=== PATIENT | female | born 2000 | race Caucasian/White ===

== ENCOUNTER 2019-11-29 17:00 | Emergency (ER) | payer OTHER ==
[~2019-11-29] VITALS: Ht 167.4 cm; Wt 113.4 kg
[2019-11-29] MEDS ORDERED: fentaNYL INJECTION 100 MCG/2 ML AMP ONE (17:05)
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
[2019-11-29 17:27] LABS: HEMOGLOBIN 13.4 G/DL (11.5-16.0); MEAN PLATELET VOLUME 9.2 FL (7.4-10.4); RED CELL DISTRIBUTION WIDTH 14.2 % (10.0-14.5); WHITE BLOOD COUNT 8.9 10^3/uL (4.3-11.0)
[2019-11-29] MEDS ORDERED: IOHEXOL 350 MG/ML 100 ML (OMNIPAQUE 350) VIAL IV ONE (17:30)
[2019-11-29] MEDS ORDERED: HOLD METFORMIN - RECEIVED CONTRAST 20 ML VIAL IV SCH (17:30)
[2019-11-29] MEDS ORDERED: NS 100 ML (IVPB) BAG IV ONE (17:30)
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
[2019-11-29 17:49] LABS: ALANINE AMINOTRANSFERASE 30 U/L (0-55); ALBUMIN 4.1 GM/DL (3.2-4.5); ALKALINE PHOSPHATASE 58 U/L (40-136); BILIRUBIN,DIRECT 0.2 MG/DL (0.0-0.3); BILIRUBIN,INDIRECT 0.1 MG/DL; BILIRUBIN,TOTAL 0.3 MG/DL (0.1-1.0); BUN/CREATININE RATIO 10; CALCIUM 9.6 MG/DL (8.5-10.1); CARBON DIOXIDE 18 MMOL/L (21-32); CHLORIDE 115 MMOL/L (98-107); CREATININE SERUM 0.91 MG/DL (0.60-1.30); GFR ESTIMATED > 60; GLUCOSE 125 MG/DL (70-105); POTASSIUM 3.5 MMOL/L (3.6-5.0); SODIUM 142 MMOL/L (135-145); TOTAL PROTEIN 7.2 GM/DL (6.4-8.2)
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
--- NOTE | 2019-11-29 18:05 | NUR ---
c collar removed by physician
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
[2019-11-29] MEDS ORDERED: NS IV 1000 ML 1,000 ML ONE (18:06)
[2019-11-29] MEDS ORDERED: TETANUS,DIPTH,PERTUSS P/F (BOOSTRIX) 0.5 ML VIAL IM ONE (18:15)
[2019-11-29] MEDS ORDERED: fentaNYL INJECTION 100 MCG/2 ML AMP IVP ONE (18:15)
--- NOTE | 2019-11-29 18:45 | NUR ---
physician sutures right hand. mother arrived.
[2019-11-29] MEDS ORDERED: HYDROcodone/APAP 10 MG/325 MG (LORTAB) TAB PO ONE (19:00)
[2019-11-29] MEDS ORDERED: ceFAZolin INJECTION 1,000 MG in WATER (STERILE) FOR INJECTION 10 ML IV ONE (20:00)
[2019-11-29 20:28] VITALS: BP 142/81
== END 2019-11-29 20:58 | disposition short-term general hospital (02) ==
LOC: ER 17:02
DX: S20.411A Abrasion of right back wall of thorax, initial encounter (principal); S20.311A Abrasion of right front wall of thorax, initial encounter; S60.511A Abrasion of right hand, initial encounter; R40.2142 Coma scale, eyes open, spontaneous, at arrival to emergency department; R40.2252 Coma scale, best verbal response, oriented, at arrival to emergency department; R40.2362 Coma scale, best motor response, obeys commands, at arrival to emergency department; Z23 Encounter for immunization; V49.40XA Driver injured in collision with unspecified motor vehicles in traffic accident, initial encounter
CPT/HCPCS: 12001; 36415; 70450; 71045; 71260; 72125; 72128; 72131; 73130; 80048; 80076; 80320; 84703; 85027; 90715; 93005; 93041